=== PATIENT | male | born 1975 | race Two or more races ===

== ENCOUNTER 2023-02-15 22:15 | Emergency (ER) | payer MEDICAID ==
[~2023-02-15] VITALS: Ht 167.6 cm; Wt 89.8 kg
--- NOTE | 2023-02-15 22:46 | NUR ---
SEEN AT BEDSIDE, AWAITING ORDERS
[2023-02-15] MEDS ORDERED: IBUPROFEN 600 MG TABLET PO ONE (23:00)
[2023-02-15] MEDS ORDERED: MECLIZINE HCL 25 MG TABLET PO ONE (23:00)
[2023-02-15] MEDS ORDERED: MECLIZINE HCL 25 MG TABLET ONE (23:03)
[2023-02-15] MEDS ORDERED: IBUPROFEN 600 MG TABLET ONE (23:03)
--- NOTE | 2023-02-16 00:05 | NUR ---
[facility]
--- NOTE | 2023-02-16 00:20 | NUR ---
PATIENT RETURNED FROM CT VIA [facility]
[2023-02-16] MEDS ORDERED: MECL-159 PO (01:05)
[2023-02-16 01:16] VITALS: BP 136/88
--- NOTE | 2023-02-16 01:16 | NUR ---
Patient discharged to home in stable condition. Written and verbal after care instructions given. Patient verbalizes understanding of instruction.
== END 2023-02-16 01:17 | disposition home or self-care (01) ==
LOC: ER 22:24
DX: R42 Dizziness and giddiness (principal); R51.9 Headache, unspecified
CPT/HCPCS: 99284; 70450; J8597